=== PATIENT | female | born 1935 | race Caucasian/White ===

== ENCOUNTER 2017-06-03 09:39 | Inpatient (IN) | payer MEDICARE, OTHER ==
[~2017-06-03] VITALS: Ht 160 cm; Wt 54.0 kg
[2017-06-03] MEDS ORDERED: ATEN-104 PO (09:59)
[2017-06-03] MEDS ORDERED: ASPI-496 PO (10:00)
[2017-06-03 10:27] LABS: BASOPHILS # (AUTO) 0.02 x10^3/uL (0-0.1); BASOPHILS % (AUTO) 0 % (0-1); EOSINOPHILS # (AUTO) 0.01 x10^3/uL (0-0.4); EOSINOPHILS % (AUTO) 0 % (1-7); LYMPHOCYTES # (AUTO) 0.92 x10^3/uL (1-3.4); LYMPHOCYTES % (AUTO) 8 % (22-44); MD NO; MEAN CORPUSCULAR HGB CONC 33.5 g/dL (32.4-35.8); MEAN CORPUSCULAR VOLUME 86.4 fL (80-100); MEAN PLATELET VOLUME 7.7 fL (7.4-10.4); MONOCYTES # (AUTO) 0.76 x10^3/uL (0.2-0.8); MONOCYTES % (AUTO) 6 % (2-9); NEUTROPHILS % (AUTO) 86 % (42-75); PLATELET COUNT 348 x10^3/uL (130-400); RED BLOOD COUNT 4.55 x10^6/uL (3.82-5.3); RED CELL DISTRIBUTION WIDTH 15.2 % (9.6-15.2)
[2017-06-03 10:45] LABS: ALANINE AMINOTRANSFERASE 24 U/L (12-78); ALBUMIN 3.2 g/dL (3.4-5.0); ANION GAP 6 mmol/L (5-15); CALCIUM 9.2 mg/dL (8.5-10.1); CHLORIDE 106 mmol/L (98-107); CREATININE 0.84 mg/dL (0.55-1.02)
[2017-06-03 10:48] LABS: ALKALINE PHOSPHATASE 98 U/L (45-117); BILIRUBIN,TOTAL 0.4 mg/dL (0.2-1.0); TOTAL PROTEIN 7.7 g/dL (6.4-8.2)
[2017-06-03 12:13] LABS: MICROSCOPIC AUTO
[2017-06-03 12:17] LABS: CULTURE INDICATED? NO
[2017-06-03] MEDS ORDERED: ACETAMINOPHEN 325 MG TABLET PO PRN (13:30)
[2017-06-03 15:12] VITALS: BP 158/74
[2017-06-03 20:08] VITALS: BP 178/76
[2017-06-04] VITALS (7 sets, daily range): BP systolic 104–165; BP diastolic 59–82
[2017-06-04] MEDS: ATENOLOL 50 MG TABLET PO SCH (09:03)
[2017-06-04] MEDS: ASPIRIN 81 MG TABLET EC PO SCH (09:03)
[2017-06-05 01:00] VITALS: BP 118/63
[2017-06-05 06:38] VITALS: BP_SYST 154; BP_SYST 166; BP_DIAS 83; BP_DIAS 96
[2017-06-05] MEDS: ATENOLOL 50 MG TABLET PO SCH (07:41)
[2017-06-05] MEDS: ASPIRIN 81 MG TABLET EC PO SCH (07:41)
[2017-06-05 13:18] VITALS: BP 124/76
[2017-06-05 19:46] VITALS: BP 132/71
[2017-06-06] VITALS (7 sets, daily range): BP systolic 119–165; BP diastolic 64–78
[2017-06-06 06:08] LABS: BASOPHILS % (AUTO) 0 % (0-1); EOSINOPHILS # (AUTO) 0.05 x10^3/uL (0-0.4); EOSINOPHILS % (AUTO) 0 % (1-7); LYMPHOCYTES # (AUTO) 1.29 x10^3/uL (1-3.4); LYMPHOCYTES % (AUTO) 11 % (22-44); MD NO; MEAN CORPUSCULAR HEMOGLOBIN 28.9 pg (27.0-34.8); MEAN CORPUSCULAR HGB CONC 33.8 g/dL (32.4-35.8); MEAN CORPUSCULAR VOLUME 85.5 fL (80-100); MONOCYTES % (AUTO) 9 % (2-9); NEUTROPHILS # (AUTO) 9.71 x10^3/uL (1.8-6.8); NEUTROPHILS % (AUTO) 80 % (42-75); PLATELET COUNT 326 x10^3/uL (130-400); RED BLOOD COUNT 4.43 x10^6/uL (3.82-5.3); RED CELL DISTRIBUTION WIDTH 15.2 % (9.6-15.2)
[2017-06-06 06:16] LABS: CHLORIDE 102 mmol/L (98-107)
[2017-06-06 06:35] LABS: ALANINE AMINOTRANSFERASE 25 U/L (12-78); ALBUMIN 2.7 g/dL (3.4-5.0); ALKALINE PHOSPHATASE 88 U/L (45-117); ANION GAP 7 mmol/L (5-15); BILIRUBIN,TOTAL 0.8 mg/dL (0.2-1.0); CALCIUM 8.7 mg/dL (8.5-10.1); CREATININE 0.75 mg/dL (0.55-1.02); FREE T4 (FREE THYROXINE) 1.24 ng/dL (0.76-1.46); TOTAL PROTEIN 7.1 g/dL (6.4-8.2)
[2017-06-06] MEDS: ATENOLOL 50 MG TABLET PO SCH (07:57)
[2017-06-06] MEDS: ASPIRIN 81 MG TABLET EC PO SCH (09:00)
[2017-06-06] MEDS ORDERED: FENTANYL PF 100 MCG/2ML ONE ×2 (09:36)
[2017-06-06] MEDS ORDERED: NALOXONE 1 MG/ML, 2ML ONE (09:37)
[2017-06-06] MEDS ORDERED: FLUMAZENIL 0.1 MG/1 ML, 5ML ONE (09:37)
[2017-06-06] MEDS ORDERED: MIDAZOLAM 1 MG/ML, 5ML ONE ×2 (09:37)
[2017-06-06] MEDS: MELATONIN 5 MG TABLET PO PRN (22:07)
[2017-06-07 02:10] VITALS: BP 119/58
[2017-06-07 07:29] VITALS: BP 120/64
[2017-06-07] MEDS: ATENOLOL 50 MG TABLET PO SCH (09:23)
[2017-06-07] MEDS: ASPIRIN 81 MG TABLET EC PO SCH (09:26)
[2017-06-07] MEDS ORDERED: MEGESTROL 40MG TABLET PO SCH (11:30)
[2017-06-07] MEDS: MULTIVITAMIN 1 TABLET PO SCH (13:14)
[2017-06-07] MEDS: MEGESTROL ACETATE 400 MG/10 ML ML PO SCH (13:14)
[2017-06-07 15:00] VITALS: BP 117/62
[2017-06-07 20:00] VITALS: BP 153/70
[2017-06-07] MEDS: MELATONIN 5 MG TABLET PO PRN (23:20)
[2017-06-08 02:00] VITALS: BP 129/72
[2017-06-08 08:10] VITALS: BP 120/69
[2017-06-08] MEDS: ASPIRIN 81 MG TABLET EC PO SCH (09:30)
[2017-06-08] MEDS: MULTIVITAMIN 1 TABLET PO SCH (09:30)
[2017-06-08] MEDS: MEGESTROL ACETATE 400 MG/10 ML ML PO SCH (09:30)
[2017-06-08] MEDS: ATENOLOL 50 MG TABLET PO SCH (09:30)
[2017-06-08 13:30] VITALS: BP 122/69
[2017-06-08 19:39] VITALS: BP 120/58
[2017-06-09 02:29] VITALS: BP 139/69
[2017-06-09 07:49] VITALS: BP 124/71
[2017-06-09] MEDS: ASPIRIN 81 MG TABLET EC PO SCH (07:57)
[2017-06-09] MEDS: MULTIVITAMIN 1 TABLET PO SCH (07:57)
[2017-06-09] MEDS: MEGESTROL ACETATE 400 MG/10 ML ML PO SCH (07:58)
[2017-06-09] MEDS: ATENOLOL 50 MG TABLET PO SCH (07:58)
[2017-06-09] MEDS ORDERED: HEPARIN 5,000 UNITS/ML, 1ML SQ SCH (11:30)
[2017-06-09 13:47] VITALS: BP 113/70
[2017-06-09] MEDS ORDERED: MELA5TAB19 PO (13:58)
[2017-06-09] MEDS ORDERED: MEGE400O4 PO (13:58)
== END 2017-06-09 19:01 | DRG 181 ==
LOC: ED 11:52 → EDIP 12:04 → OBSVTOIN 13:11 → 3NE 14:40
PROVIDERS: ADMIT Internal Medicine; ATTEND Internal Medicine
PROC: 0BBK3ZX Excision of Right Lung, Percutaneous Approach, Diagnostic (ICD-10-PCS; principal; 2017-06-06)
DX: C34.91 Malignant neoplasm of unspecified part of right bronchus or lung (principal); M84.48XA Pathological fracture, other site, initial encounter for fracture; E44.0 Moderate protein-calorie malnutrition; I69.354 Hemiplegia and hemiparesis following cerebral infarction affecting left non-dominant side; E87.1 Hypo-osmolality and hyponatremia; E44.1 Mild protein-calorie malnutrition; I11.9 Hypertensive heart disease without heart failure; I10 Essential (primary) hypertension; G89.11 Acute pain due to trauma; D72.829 Elevated white blood cell count, unspecified; W06.XXXA Fall from bed, initial encounter; I35.0 Nonrheumatic aortic (valve) stenosis; R32 Unspecified urinary incontinence; R91.8 Other nonspecific abnormal finding of lung field; M51.36 Other intervertebral disc degeneration, lumbar region; Z85.3 Personal history of malignant neoplasm of breast; Z90.12 Acquired absence of left breast and nipple; Z91.81 History of falling; Y93.89 Activity, other specified; Y92.092 Bedroom in other non-institutional residence as the place of occurrence of the external cause; Y99.8 Other external cause status; Z91.040 Latex allergy status; Z91.048 Other nonmedicinal substance allergy status; Z80.52 Family history of malignant neoplasm of bladder
CPT/HCPCS: 32405; 36415; 71045; 71250; 72190; 77012; 80053; 81001; 82550; 84439; 84443; 85025; 88305; 88341; 88342; 88360; 93306; 99156; 99157; 99285; C2613; J1644; J2250; J3010; G0378; G0461; J2310